=== PATIENT | male | born 1960 | race Caucasian/White ===

== ENCOUNTER 2016-06-14 13:36 | Observation (INO) | payer OTHER, MEDICARE ==
[~2016-06-14] VITALS: Ht 182.9 cm; Wt 94.1 kg
[2016-06-14] VITALS (7 sets, daily range): BP systolic 118–151; BP diastolic 72–90; PULSE 85–106; RESP 16–22; O2SAT 93–98
[~2016-06-14 13:36] MED LIST: AMOX-366 PO; ASPI-973 PO; CHOL500011 PO; DIAZ2TAB PO; DOCU250C2 PO; LORA10CA PO; METH750T3 PO; MORP30CA17 PO; OXYC10TA8 PO; PANT40TA3 PO; RANI300C PO
[2016-06-14] MEDS ORDERED: CETI10CA PO (13:43)
[2016-06-14] MEDS ORDERED: GLUC-172 PO (13:44)
--- NOTE | 2016-06-14 14:19 | DRSVH ---
PROCEDURE: X-RAY CHEST, TWO VIEWS ([id number]) INDICATIONS: shortness of breath , fever TECHNIQUE: 2 views of the chest were acquired. COMPARISON: [facility], CHEST 2VW, 06/12/2016, 11:39 AM. FINDINGS: Surgical changes and devices: None. Lungs and pleura: No pleural effusions or pneumothorax. Lungs are clear. Mediastinum: Mediastinal contours are normal. Heart size is normal. Bones and chest wall: No suspicious bony abnormalities. Soft tissues appear unremarkable. IMPRESSION: No acute cardiopulmonary disease. Dictated by: Amadou Barron [facility] Interpreted: Verona Campos MD on 06/14/2016 at 14:18 Transcribed by: PASHA on 06/14/2016 at 14:19 Approved by: Verona Campos MD, PhD on 06/14/2016 at 17:01
[2016-06-14 14:38] LABS: BASOPHILS % (AUTO) 0.3 % (0-3); EOSINOPHILS % (AUTO) 0.1 % (0-5); MONOCYTES % (AUTO) 5.3 % (4-12); Mean Corpuscular Hemoglobin 29.9 pg (27.0-35.0); Mean Corpuscular Volume 85.7 fL (81-100); NEUTROPHILS % (AUTO) 81.5 % (40-74); Platelet Count 318 bil/L (150-400)
--- NOTE | 2016-06-14 14:54 | ED.REPORT ---
HPI-Dyspnea / Wheezing Date of Service Jun 14, 2016 ED Provider: Sabas Lee MD This is a 55 year old male presenting to the emergency department due to shortness of breath that began 4 days ago. Saw his PCP 3 days ago, prescribed z- pack and prednisone taper which have not provided symptom relief. Associated symptoms include productive cough, rhinorrhea, sore throat, fever, chills, and chest pain with deep inspiration. Denies lower extremity swelling, recent prolonged period of inactivity, nausea, vomiting, or abdominal pain. Nursing Notes Stated Complaint: SHORTNESS OF BREATH Chief Complaint: Respiratory Distress Nursing Notes Reviewed: Yes Allergies: Coded Allergies: No Known Allergies (Verified Allergy, Unknown, 06/18/15) Scheduled Aspirin (Aspirin) 81 Mg Tablet 162 MG PO DAILY Cetirizine HCl (Zyrtec) 10 Mg Capsule 10 MG PO HS Cholecalciferol (Vitamin D3) (Vitamin D3) 5,000 Unit Tablet 5,000 UNIT PO DAILY Glucosamine/MSM/Chondroitin A (Triple Flex Caplet) 1 Each Tablet 1 EACH PO DAILY Morphine Sulfate ER (Morphine Sulfate ER) 30 Mg Capsule 30 MG PO BID Pantoprazole DR (Pantoprazole DR) 40 Mg Tablet.dr 40 MG PO BID Ranitidine (Ranitidine) 300 Mg Capsule 300 MG PO DAILY Scheduled PRN Docusate Sodium (Docusate Sodium) 250 Mg Capsule 250 MG PO DAILY PRN PRN For Constipation Methocarbamol (Methocarbamol) 750 Mg Tablet 750 MG PO QID PRN PRN For Spasm oxyCODONE (oxyCODONE) 10 Mg Tablet 10 MG PO Q4H PRN PRN For Pain General Time Seen by MD: 14:53 Chief Complaint Shortness of breath Hx Obtained From: Patient Arrived By: Walk-in Sudden in Onset?: Yes Onset Occurred: 4 days ago Symptom Duration: Since onset Severity: Current: No pain currently Pertinent Negative: Pt denies other symptoms Recent Healthcare: No recent hospitalization, Recent doctor visit Similar Sx Previous: No Past Medical History Past Medical History Denies Past Surgical History Denies Smoking History Former Smoker Ambulatory Status Independent Review of Systems Constitutional: Denies: Chills, Fever Ears / Nose / Throat: Reports: Sore throat Respiratory: Reports: Prod cough, bloody, Prod cough, white, Shortness of breath Cardiovascular: Denies: Chest pain Complete sys rev & neg: except as marked. GI: Denies: Abdominal pain, Nausea, Vomiting Physical Exam Initial Vital Signs Vital Signs (First) Date Time Temp Pulse Resp B/P Pulse Ox O2 Delivery O2 Flow Rate FiO2 06/14/16 13:39 36.7 106 20 151/90 94 Room Air Initial VS: Reviewed Head / Eyes: Atraumatic, Normocephalic, PERRL ENT: Mucous membranes moist, Conjunctiva normal, No scleral icterus Abdomen / GI: Soft, Non-tender, No guarding, No rebound, No distention Extremities: Vascular intact, Neuro intact, No swelling, No tenderness Skin: Warm, Dry, No cyanosis Neurologic: Alert, Oriented, Nonfocal Psychiatric: Mood/affect normal, Behavior normal, Normal thought content General/Constitutional: Awake, Alert Neck: Atraumatic, Supple, No meningismus, Full range of motion, No swelling, Non-tender, No masses Diminished Breath Sounds: Positive: Decreased bilateral Wheezing / Retractions: Positive: Wheeze insp/exp diffuse Cardiovascular: Heart rate NL, Regular rhythm, Heart sounds NL, No murmurs, Cap refill not delayed, Peripheral circulation NL Interpretation & Diagnostics Lab Results Interpretation Result Diagram: 06/14/16 1435 06/14/16 1435 Test 06/14/16 14:35 White Blood Count 10.3th/mm3 (3.8-10.1) Red Blood Count 5.12mil/mm3 (4.40-5.80) Hemoglobin 15.3g/dL (13.8-17.2) Hematocrit 43.9% (41.0-50.0) Mean Corpuscular Volume 85.7fL (81-100) Mean Corpuscular Hemoglobin 29.9pg (27.0-35.0) Mean Corpuscular Hemoglobin Concent 34.9% (32.0-37.0) Red Cell Distribution Width 12.7% (12.3-15.4) Platelet Count 318bil/L (150-400) Neutrophils (%) (Auto) 81.5% (40-74) Lymphocytes (%) (Auto) 10.9% (14-46) Monocytes (%) (Auto) 5.3% (4-12) Eosinophils (%) (Auto) 0.1% (0-5) Basophils (%) (Auto) 0.3% (0-3) D-Dimer < 0.5mg/L (<0.50) Sodium Level 141mEq/L (134-144) Potassium Level 4.6mEq/L (3.5-5.2) Chloride Level 101mEq/L (97-108) Carbon Dioxide Level 25mmol/L (18-29) Blood Urea Nitrogen 13mg/dL (6-24) Creatinine 0.65mg/dL (0.76-1.27) Estimat Glomerular Filtration Rate 136mL/min (>59) Glucose Level 123mg/dL (60-99) Lactic Acid Level 2.1mmol/L (0.4-2.0) Calcium Level 9.2mg/dL (8.5-10.1) Magnesium Level 2.3mg/dL (1.6-2.6) Total Bilirubin 0.3mg/dL (0.0-1.2) Aspartate Amino Transf (AST/SGOT) 28U/L (0-50) Alanine Aminotransferase (ALT/SGPT) 37U/L (0-44) Alkaline Phosphatase 91U/L (25-150) Troponin T < 0.010ug/L (0.0-0.011) Pro-B-Type Natriuretic Peptide 27.09pg/mL (0-121) Total Protein 7.4g/dL (6.4-8.4) Albumin 4.2g/dL (3.4-5.0) ECG Interpretation ECG Interpretation: NSR at a rate of 91 Time: 15:08 Normal ECG Interpretation: Normal ECG w/ rate of... X-Ray Chest Interpretation Chest Xray Interpretation: IMPRESSION: No acute cardiopulmonary disease. Dictated by: Amadou Barron RRA Interpreted: Verona Campos MD on 06/14/2016 at 14:18 Transcribed by: PASHA on 06/14/2016 at 14:19 Re-Eval/Medical Decision Med Decision/Clinical Course 55-year-old male complaining of cough, congestion, sore throat times several days. Patient was started on Z-Julián and prednisone 80 mg 3 days ago and still feels short of breath. His oxygen is 90-94% on room air. It is 88% while ambulating. This is after getting 3 days of oral steroids and here he received Solu-Medrol and nebulizers 2. Chest x-ray is clear. D-dimer is negative. Troponins are negative. Likely viral trigger. He does have a history of smoking though no clear diagnosis of COPD or asthma in the past. Discussed with family and they are not comfortable with him going home. Given his low ambulatory sats this is not unreasonable. We will admit to hospitalist. Re-Evaluation/Progress : Time of Eval: 16:10 Re-Evaluation/Progress Note: hypoxic on room air, plan for d/c, all questions addressed. Consultation : Referral / Consult Name: Mundo Downey MD Consulted With: Hospitalist Call Returned at: 16:13 Agile Developer: Accepts admit Counseled Regarding: Diagnosis, Lab results, Need for follow-up, Need for admission Discharge & Departure Impression: Primary Impression: Asthma exacerbation Disposition: ADMITTED TO HOSPITAL Discharge Condition All VS Reviewed: Yes Condition: Stable Referrals: Chace Jerry MD (PCP) Scribe Attestation Portions of this note were transcribed by Asad Chang. I, Dr. Lee personally performed the history, physical exam and medical decision-making; I reviewed and confirmed the accuracy of the information in the transcribed note. Signed by: zahraa Madrid. 06/14/2016, 18:00. Sabas Lee MD Jun 14, 2016 14:54 ASAD CHANG Jun 14, 2016 15:00
[2016-06-14] MEDS ORDERED: Albuterol 2.5 mg/3 mL Inhalation Solution NEB ONE (15:05)
[2016-06-14] MEDS ORDERED: MethylprednisoLONE Sodium Succinate 62.5 mg/mL 2 mL Inj IM ONE (15:05)
[2016-06-14 15:08] LABS: Magnesium 2.3 mg/dL (1.6-2.6); TROPONIN T < 0.010 ug/L (0.0-0.011)
[2016-06-14] MEDS ORDERED: Alum-Mag Hydrox-Simeth 30 mL Suspension PO PRN (16:15)
[2016-06-14] MEDS ORDERED: Ondansetron 2 mg/mL 2 mL Inj IVPUSH PRN (16:15)
--- NOTE | 2016-06-14 16:47 | NUR ---
Report Received Received report from RN ANTE PARTUMBRIDGER Maldonado.
[2016-06-14] MEDS ORDERED: DOCU-41 PO (16:51)
[2016-06-14] MEDS ORDERED: MORP-32 PO (16:55)
[2016-06-14] MEDS ORDERED: OXYC-474 PO (16:55)
[2016-06-14] MEDS ORDERED: PRE20 PO (16:55)
[2016-06-14] MEDS ORDERED: POLY17PO6 PO (16:57)
[2016-06-14] MEDS ORDERED: CYCL10TA9 PO (16:57)
[2016-06-14] MEDS ORDERED: AZIT250T4 PO (16:57)
[2016-06-14] MEDS ORDERED: VITA1CAP16 PO (16:57)
--- NOTE | 2016-06-14 17:08 | NUR ---
Arrival to Floor Patient arrived to floor at this time, came via wheelchair from ER, was able to ambulate to bed independently.
--- NOTE | 2016-06-14 17:49 | NUR ---
contacted Contacted Dr. Downey with the following cook page: Patient has arrived to floor. Patient is requesting some of his home medications, particularly pain medications for chronic back pain. Please advise. Thank you. Fatou SILVERIO
--- NOTE | 2016-06-14 17:53 | PCM.HPMED ---
Subjective Date of Service Jun 14, 2016 Primary Provider: Admitting Physician: Mundo Downey MD Primary Care Physician: Chace Jerry MD Attending Physician: Mundo Downey MD Allergies Coded Allergies: No Known Allergies (Verified Allergy, Unknown, 06/18/15) PMH None Surgical History None Family History Reviewed and is noncontributory to the present illness Social History Hx Alcohol Use: Yes (ONCE A MONTH) Smoking Status: Former Smoker Exam Vital Signs Vital Sign - Last Date Time Temp Pulse Resp B/P Pulse Ox O2 Delivery O2 Flow Rate FiO2 06/14/16 17:15 37.0 91 16 123/77 93 Room Air Exam General/Constitutional: Awake, Alert, in bed comfortably. NAD Head / Eyes: Atraumatic, Normocephalic,Sclerae is anicteric Mouth: Moist oral mucosae, no oral thrush. Neck: Supple, Full range of motion, No masses, trachea is midline Chest : Normal respiratory effort, no chest wall tenderness Lung : B/L wheeze mainly expiratory and ronchi. No crackles . Cardiovascular: S1S2, Regular rhythm,, No murmurs, no pedal edema Abdomen / GI: Soft, Non-tender, No guarding, No rebound, No distention Extremities: No cyanosis , no edema, no calf tenderness Skin: Warm, Dry, No cyanosis Neurologic: Alert, Oriented, Nonfocal. Grossly non focal Psychiatric: Mood/affect normal, Behavior normal, Lab and Diagnostics Result Diagram: 06/14/16 1435 06/14/16 1435 X-Rays, CTs and MRIs Chest x-ray reviewed and showed no acute intrapulmonary disease Assessment & Plan 1. Acute bacterial bronchitis 2 shortness of breath 3. Dehydration Observation status IV hydration with normal saline at 100 mL per hour. Ceftriaxone 1 g IV daily. Zithromax 250 daily. Supplemental oxygen. Duoneb nebulizer . Antitussive ( Robitussin PRN) Continue oral prednisone. Patient may have underlying COPD . He has a 20 years pack and was a second hand smoker all his childhood Heparin for for DVT prophylaxis. Home medications reviewed and reconciled. Short hospital stay is expected Pain Evaluation: Adequate Pain Control Resuscitation Status: CPR: Attempt Resuscitation Time spent 55 minutes Mundo Downey MD Jun 14, 2016 17:53
[2016-06-14] MEDS ORDERED: Morphine ER 15 mg (MS Contin) Tablet PO PRN (17:55)
[2016-06-14] MEDS ORDERED: cefTRIAXone Inj 1,000 MG in Dextrose 5% Minibag Plus 50 ML IV SCH (18:30)
[2016-06-14] MEDS: 0.9% Sodium Chloride 1,000 ML IV SCH (18:44)
--- NOTE | 2016-06-14 19:11 | NUR ---
Assessment Timed Wrong Patient's assessment, nani scale, pain scale, etc were documented for the wrong time of 1530, but assessment was actually done at 1730, made NOC RN aware of wrong time of assessment.
[2016-06-14 19:16] LABS: APPEARANCE,URINE CLEAR (CLEAR,HAZY); COLOR,URINE YELLOW (YELLOW); OCCULT BLOOD,URINE NEGATIVE (NEGATIVE); UROBILINOGEN,URINE NORMAL (NORMAL)
[2016-06-14] MEDS ORDERED: guaiFENesin 20 mg/mL 10 mL Syrup PO PRN (19:20)
[2016-06-14] MEDS: Pantoprazole 40 mg ER24 Tablet PO SCH (21:05)
[2016-06-14] MEDS: Albuterol-Ipratropium 3 mL Inhalation Solution NEB SCH (21:45)
--- NOTE | 2016-06-15 00:01 | NUR ---
RN MDS COORDINATOR Resumed care of pt at 2315. Pt reassessed, no problems at this time. Will do VS check at 0200 when RT does neb txment per pt request. Hourly rounding in place.
[2016-06-15 02:55] VITALS: PULSE 85; RESP 18; O2SAT 97
[2016-06-15] MEDS: Albuterol-Ipratropium 3 mL Inhalation Solution NEB SCH ×2 (02:55→09:09)
[2016-06-15 03:04] VITALS: BP 114/66; PULSE 87; RESP 18; O2SAT 99
[2016-06-15] MEDS: 0.9% Sodium Chloride 1,000 ML IV SCH (04:24)
[2016-06-15] MEDS: Pantoprazole 40 mg ER24 Tablet PO SCH (06:44)
[2016-06-15 07:15] LABS: BASOPHILS % (AUTO) 0.1 % (0-3); EOSINOPHILS % (AUTO) 0 % (0-5); MONOCYTES % (AUTO) 9.4 % (4-12); Mean Corpuscular Hemoglobin 29.8 pg (27.0-35.0); Mean Corpuscular Volume 86.8 fL (81-100); Platelet Count 295 bil/L (150-400)
[2016-06-15] MEDS ORDERED: CHOLECALCIFEROL PO SCH (08:05)
[2016-06-15] MEDS ORDERED: GLUCOSAMINE PO SCH (08:05)
[2016-06-15] MEDS ORDERED: Vitamin B Complex/Vit C Tablet PO SCH ×2 (08:05→08:30)
[2016-06-15] MEDS ORDERED: MSM PO SCH (08:05)
[2016-06-15] MEDS ORDERED: CHONDROITIN A PO SCH (08:05)
[2016-06-15] MEDS ORDERED: Vitamin D3 400 Unit/mL 50 mL Oral Solution PO SCH (08:30)
[2016-06-15] MEDS ORDERED: predniSONE 20 mg Tablet PO SCH (08:30)
[2016-06-15] MEDS ORDERED: Morphine ER 30 mg (MS Contin) Tablet PO SCH (08:45)
[2016-06-15 09:04] VITALS: PULSE 81
[2016-06-15 09:10] VITALS: PULSE 81; RESP 18; O2SAT 97
[2016-06-15 09:15] VITALS: BP 127/93; PULSE 79; RESP 18; O2SAT 93
--- NOTE | 2016-06-15 10:17 | PCM.DIMED ---
Discharge Instructions Date of Service Jun 15, 2016 Dates of Hospitalization Jun 14, 2016 at 16:52 Discharge Diagnosis Discharge Diagnosis acute viral bronchitis and suspected asthma exacerbation Test Results procalcitonin( marker for bacterial infection) negative,CXR normal Diet Low fat, Low Sodium Activity No restrictions Call your provider Fever or Chills, Shortness of breath, Bleeding, Chest pain, Vomitting, Excessive diarrhea, Weakness (unilateral) Patient Instructions You were hospitalized due to suspected viral bronchitis and suspected asthma exacerbation. Please continue steroid taper as prednisone 40 mg po daily for 2 more days then 20mg daily for 4 days . Please continue Azithromycin for 2 more days as prescribed by PCP. Please take cough syrup as prescribed as needed. Follow-up plan please follow up with PCP in 1-2 weeks . Follow-up Provider: Chace Jerry MD Follow-up with PCP in: 1 week Emanuel Salmeron MD Jun 15, 2016 10:17
[2016-06-15] MEDS ORDERED: PRE20 PO (10:21)
[2016-06-15] MEDS ORDERED: GUAI120L57 PO (10:21)
--- NOTE | 2016-06-15 11:14 | NUR ---
Discharge IV DC'd intact. Patient denies pain, VSS. Patient received care notes on asthma and new prescriptions. Discharge instructions reviewed, patient and verbalized understanding. Patient left A/Ox3 in ambulatory condition, to be transported home by .
--- NOTE | 2016-06-15 11:28 | PCM.DC.MED ---
Discharge Summary Date of Service Jun 15, 2016 Dates of Hospitalization Date of Hospital Admission Jun 14, 2016 at 16:52 Date of Discharge: Jun 15, 2016 Providers: Admitting Physician: Mundo Downey MD Primary Care Physician: Chace Jerry MD Attending Physician: Mundo Downey MD Diagnosis at Time of Discharge Diagnosis at Time of Discharge acute viral bronchitis and suspected asthma exacerbation Consultations none Procedures XRay, CTs & MRIs Chest x-ray reviewed and showed no acute intrapulmonary disease Brief History per ER note on 06/14/16 This is a 55 year old male presenting to the emergency department due to shortness of breath that began 4 days ago. Saw his PCP 3 days ago, prescribed z- pack and prednisone taper which have not provided symptom relief. Associated symptoms include productive cough, rhinorrhea, sore throat, fever, chills, and chest pain with deep inspiration. Denies lower extremity swelling, recent prolonged period of inactivity, nausea, vomiting, or abdominal pain. Hospital Course 1. Acute viral bronchitis and acute asthma exacerbation Treated with Ceftriaxone 1 g IV daily. Zithromax 250 daily. Pro-calcitonin negative. Chest x-ray negative. Afebrile. Will discharge home. Bronchitis likely viral. will continue azithromycin for 2 more days for anti- inflammatory effect. Cough syrup Continue oral prednisone. Ambulation pulse ox checked and saturates 94% Exam Vital Signs (Last) Date Time Temp Pulse Resp B/P Pulse Ox O2 Delivery O2 Flow Rate FiO2 06/15/16 09:15 36.7 79 18 127/93 93 Room Air 06/15/16 03:04 1.50 Exam General/Constitutional: Awake, Alert, in bed comfortably. NAD Head / Eyes: Atraumatic, Normocephalic,Sclerae is anicteric Mouth: Moist oral mucosae, no oral thrush. Neck: Supple, Full range of motion, No masses, trachea is midline Chest : Normal respiratory effort, no chest wall tenderness Lung : B/L wheeze mainly expiratory and ronchi. No crackles . Cardiovascular: S1S2, Regular rhythm,, No murmurs, no pedal edema Abdomen / GI: Soft, Non-tender, No guarding, No rebound, No distention Extremities: No cyanosis , no edema, no calf tenderness Skin: Warm, Dry, No cyanosis Neurologic: Alert, Oriented, Nonfocal. Grossly non focal Psychiatric: Mood/affect normal, Behavior normal, Test 06/14/16 14:35 06/14/16 18:40 06/15/16 06:45 D-Dimer < 0.5mg/L (<0.50) Lactic Acid Level 2.1mmol/L (0.4-2.0) Magnesium Level 2.3mg/dL (1.6-2.6) Troponin T < 0.010ug/L (0.0-0.011) Pro-B-Type Natriuretic Peptide 27.09pg/mL (0-121) Urine Color Yellow (YELLOW) Urine Appearance Clear (CLEAR,HAZY) Urine pH 7.0 (5.0-8.0) Urine Specific [place] 1.010 (1.003-1.035) Urine Protein Negativemg/dL (NEG,TRACE) Urine Glucose (UA) Negativemg/dL (NEGATIVE) Urine Ketones Negativemg/dL (NEGATIVE) Urine Occult Blood Negative (NEGATIVE) Urine Nitrite Negative (NEGATIVE) Urine Bilirubin Negative (NEGATIVE) Urine Urobilinogen Normalmg/dL (NORMAL) Urine Leukocyte Esterase Negative (NEGATIVE) Urine RBC 0-2/hpf (0-2) Urine WBC 0-5/hpf (0-5) Urine Epithelial Cells Occasional/hpf (NONE-MOD) Urine Crystals None seen (NONE SEEN) Urine Bacteria None/hpf (NONE-FEW) Urine Hyaline Casts None/lpf (NONE) Urine Granular Casts None seen (NONE SEEN) Urine Waxy Casts None seen (NONE SEEN) Urine Red Blood Cell Casts None seen (NONE SEEN) Urine White Blood Cell Casts None seen (NONE SEEN) Urine Mucus None seen (None Seen) Urine Trichomonas None seen (NONE SEEN) Urine Yeast None (NONE SEEN) Urinalysis Comment None Urine Culture Reflexed Not indicated White Blood Count 11.6th/mm3 (3.8-10.1) Red Blood Count 4.47mil/mm3 (4.40-5.80) Hemoglobin 13.3g/dL (13.8-17.2) Hematocrit 38.8% (41.0-50.0) Mean Corpuscular Volume 86.8fL (81-100) Mean Corpuscular Hemoglobin 29.8pg (27.0-35.0) Mean Corpuscular Hemoglobin Concent 34.3% (32.0-37.0) Red Cell Distribution Width 12.4% (12.3-15.4) Platelet Count 295bil/L (150-400) Neutrophils (%) (Auto) 78.0% (40-74) Lymphocytes (%) (Auto) 11.3% (14-46) Monocytes (%) (Auto) 9.4% (4-12) Eosinophils (%) (Auto) 0% (0-5) Basophils (%) (Auto) 0.1% (0-3) Sodium Level 142mEq/L (134-144) Potassium Level 4.1mEq/L (3.5-5.2) Chloride Level 105mEq/L (97-108) Carbon Dioxide Level 22mmol/L (18-29) Blood Urea Nitrogen 13mg/dL (6-24) Creatinine 0.61mg/dL (0.76-1.27) Estimat Glomerular Filtration Rate 146mL/min (>59) Glucose Level 130mg/dL (60-99) Calcium Level 8.9mg/dL (8.5-10.1) Total Bilirubin 0.2mg/dL (0.0-1.2) Aspartate Amino Transf (AST/SGOT) 22U/L (0-50) Alanine Aminotransferase (ALT/SGPT) 41U/L (0-44) Alkaline Phosphatase 85U/L (25-150) Total Protein 5.8g/dL (6.4-8.4) Albumin 3.6g/dL (3.4-5.0) Procalcitonin 0.03ng/mL (0.00-0.08) Discharge Medications Discharge Medications Aspirin (Aspirin) 81 Mg Tablet 162 MG PO QAM (Reported) Azithromycin (Zithromax (Z-Julián)) 250 Mg Tablet 250 MG PO DAILY (Reported) x2 more days Cetirizine HCl (Zyrtec) 10 Mg Capsule 10 MG PO HS (Reported) Cholecalciferol (Vitamin D3) (Vitamin D3) 5,000 Unit Tablet 15,000 UNIT PO QAM ( Reported) Cyclobenzaprine (Cyclobenzaprine) 10 Mg Tablet 10 MG PO HS (Reported) Glucosamine/MSM/Chondroitin A (Triple Flex Caplet) 1 Each Tablet 1 EACH PO QAM ( Reported) Guaifenesin/Codeine Phosphate (Codeine-Guaifen 10-100 mg/5 ml) 120 Ml Liquid 10 ML PO Q6H Prescribed by: CHASITY CARLOS MD Morphine Sulfate ER (Morphine Sulfate ER) 30 Mg Capsule 30 MG PO BID (Reported) Pantoprazole DR (Pantoprazole DR) 40 Mg Tablet.dr 40 MG PO BID (Reported) Prednisone (PredniSONE) 20 Mg Tablet 20 MG PO DAILY (Reported) x4 more days Prednisone (PredniSONE) 20 Mg Tablet 40 MG PO DAILY Prescribed by: CHASITY CARLOS MD Ranitidine (Ranitidine) 300 Mg Capsule 300 MG PO HS (Reported) Vitamin B Complex & Vit C No.3 (B Complex with Vitamin C) 1 Each Capsule 1 EACH PO QAM (Reported) As needed Docusate Sodium (Colace) 100 Mg Capsule 100 MG PO HS PRN PRN For Constipation ( Reported) Morphine Sulfate ER (Morphine Sulfate ER) 15 Mg Tablet 15 MG PO DAILY PRN PRN For Pain (Reported) use at MIDDAY if needed Oxycodone (Roxicodone) 5 Mg Tablet 5 MG PO 5XD PRN PRN For Pain (Reported) Polyethylene Glycol 3350 (Miralax) 17 Gm Powd.pack 17 GM PO DAILY PRN PRN For Constipation (Reported) Followup Plan Disposition: home Follow-up plan please follow up with PCP in 1-2 weeks . Discharge Diet: Low fat, Low Sodium Discharge Activity: No restrictions Patient Instructions You were hospitalized due to suspected viral bronchitis and suspected asthma exacerbation. Please continue steroid taper as prednisone 40 mg po daily for 2 more days then 20mg daily for 4 days . Please continue Azithromycin for 2 more days as prescribed by PCP. Please take cough syrup as prescribed as needed. Follow-up Provider: Chace Jerry MD Follow-up with PCP in: 1 week copies to: Chace Jerry MD, Melaku MD Jun 15, 2016 11:28
== END 2016-06-15 11:14 | disposition home or self-care (01) ==
LOC: SED 13:36 → MOC 16:52
PROVIDERS: ADMIT Internal Medicine; ATTEND Internal Medicine
DX: J20.8 Acute bronchitis due to other specified organisms (principal); J45.909 Unspecified asthma, uncomplicated; R06.02 Shortness of breath; E86.0 Dehydration; Z79.82 Long term (current) use of aspirin; Z87.891 Personal history of nicotine dependence
CPT/HCPCS: 36415; 71020; 80053; 81000; 83605; 83735; 83880; 84145; 84484; 85025; 85379; 87040; 87633; 93005; 94640; 94664; 96365; 96372; 99285; G0378; J0696; J2930; J7030; J7613; J7620